=== PATIENT | male | born 1950 | race Caucasian/White ===

== ENCOUNTER 2018-10-03 10:53 | Day surgery (SDC) | payer OTHER ==
[~2018-10-03 10:53] MED LIST: PROPOFOL 500 MG/50 ML EMU IV ONE
[2018-10-03 12:31] VITALS: TEMP 96.8
[2018-10-03 13:04] VITALS: BP 146/103
[2018-10-03 13:10] VITALS: PULSE 76; RESP 14; O2SAT 97
== END 2018-10-03 13:23 | disposition home or self-care (01) | DRG 951 ==
LOC: SURG 10:53
PROVIDERS: ATTEND Surgery
DX: Z12.11 Encounter for screening for malignant neoplasm of colon (principal); K57.32 Diverticulitis of large intestine without perforation or abscess without bleeding
CPT/HCPCS: J2704